=== PATIENT | male | born 1995 | race Two or more races ===

== ENCOUNTER 2021-08-08 15:44 | Emergency (ER) | payer OTHER ==
[~2021-08-08] VITALS: Ht 175.3 cm; Wt 79.4 kg
--- NOTE | 2021-08-08 16:06 | NUR ---
DR WATTERS AT BEDSIDE
[2021-08-08] MEDS ORDERED: KETOROLAC TROMETHAMINE INJ 30 MG/ML VIAL ONE (16:18)
[2021-08-08] MEDS ORDERED: KETOROLAC TROMETHAMINE INJ 30 MG/ML VIAL IM ONE (16:30)
[2021-08-08] MEDS ORDERED: HYDROCODONE/APAP 5/325MG TABLET ONE (17:59)
[2021-08-08] MEDS ORDERED: HYDROCODONE/APAP 5/325MG TABLET PO ONE (18:00)
[2021-08-08 18:06] VITALS: BP 141/88
== END 2021-08-08 20:45 | disposition home or self-care (01) ==
LOC: ER 15:44
DX: T63.011A Toxic effect of rattlesnake venom, accidental (unintentional), initial encounter (principal); R20.8 Other disturbances of skin sensation; Z60.2 Problems related to living alone; Y92.89 Other specified places as the place of occurrence of the external cause
CPT/HCPCS: 96372; 99283; J1885